=== PATIENT | female | born 1970 | race African-American/Black ===

== ENCOUNTER → 2020-10-07 | Outpatient (CLI) | payer BC ==
--- NOTE | 2020-10-10 16:31 | RAD ---
DATE: 10/07/2020 11:09 AM EXAM: MAMMO JOSS SCREENING BILATERAL HISTORY: Screening COMPARISON: 08/02/2017, 09/29/2018, 09/29/2019 Bilateral CC and MLO views of the breasts were performed. Bilateral breast tomosynthesis was performed in CC and MLO projections. This study was interpreted with the benefit of Computerized Aided Detection (CAD). FINDINGS: Breast Density: HETERO The breast parenchyma Is heterogeneously dense, which could reduce sensitivity of mammography. Breast parenchyma level C Negative left mammogram A 10 mm mass in the medial middle third right breast at the approximate 3:00 position 4 cm from the nipple needs additional imaging with targeted right breast ultrasound. IMPRESSION: Right breast mass, findings for which additional imaging is advised. BI-RADS CATEGORY: 0 INCOMPLETE: NEEDS ADDITIONAL IMAGING EVALUATION AND/OR PRIOR MAMMOGRAMS FOR COMPARISON. RECOMMENDED FOLLOW-UP: ADD ADDITIONAL IMAGING The patient will be contacted to return for additional imaging and a supplemental report will follow. PQRS compliance statement: Patient information was entered into a reminder system with a target due date for the next mammogram. Mammography is a sensitive method for finding small breast cancers, but it does not detect them all and is not a substitute for careful clinical examination. A negative mammogram does not negate a clinically suspicious finding and should not result in delay in biopsying a clinically suspicious abnormality. "Our facility is accredited by the [employer] Mammography [employer]."
== END ==
LOC: MAMMO 10:57
PROVIDERS: ATTEND Family Medicine
DX: Z12.31 Encounter for screening mammogram for malignant neoplasm of breast (principal); N63.10 Unspecified lump in the right breast, unspecified quadrant
CPT/HCPCS: 77063; 77067

== ENCOUNTER → 2020-10-13 | Outpatient (CLI) | payer BC ==
--- NOTE | 2020-10-13 13:47 | RAD ---
Examination: 1. Limited right breast ultrasound. INDICATION: Screening recall for medial right breast mass. COMPARISON: Bilateral screening mammogram of 10/07/2020, 09/29/2019 and 08/02/2017. FINDINGS: Targeted ultrasound of the medial right breast identifies an 8 mm mixed solid and cystic mass at the 3:00 position 4 cm from the nipple that correlates with the mammographic finding recalled from screen ing. It is new from 2017 and shows a central nonvascular solid component with thin internal septation s. This could represent a benign lesion such as an intraductal papilloma but tissue sampling is recom mended for definitive diagnosis. IMPRESSION: Low index of suspicion for malignancy but suspicious 8 mm mass in the medial right breast. Recommend ultrasound-guided core needle biopsy BI-RADS Category 4 Findings suspicious for malignancy Biopsy recommended Discussed with patient. Findings and recommendations telephoned to the patient's referring physician Dr. Carmen Cardenas's office where Lindsey Moore, nurse, took the report on her behalf at 1:42 PM on 09/30. Electronically signed by: Justin Cadet MD (10/13/2020 1:44 PM) [id number]
== END ==
LOC: US 11:54
PROVIDERS: ATTEND Family Medicine
DX: N63.12 Unspecified lump in the right breast, upper inner quadrant (principal)
CPT/HCPCS: 76641

== ENCOUNTER 2021-03-30 10:16 | Emergency (ER) | payer BC | END 2021-03-30 10:42 | disposition left against medical advice (07) | LOC: ER 10:16 | DX: S69.90XA Unspecified injury of unspecified wrist, hand and finger(s), initial encounter (principal); Z53.21 Procedure and treatment not carried out due to patient leaving prior to being seen by health care provider; X58.XXXA Exposure to other specified factors, initial encounter; Y93.89 Activity, other specified; Y92.89 Other specified places as the place of occurrence of the external cause; Y99.8 Other external cause status ==

== ENCOUNTER → 2021-12-07 | Outpatient (CLI) | payer BC ==
--- NOTE | 2021-12-07 12:41 | RAD ---
EXAMINATION: MG BILAT SCREEN+JOSS CLINICAL HISTORY: Routine screening TECHNIQUE: Digital craniocaudal and mediolateral oblique views of the bilateral breasts obtained with 3-D tomosynthesis. COMPARISON: 10/07/2020, 09/29/2019, 09/29/2018 BREAST COMPOSITION: The breasts are heterogeneously dense, which may obscure small masses. FINDINGS: Increased conspicuity of possible architectural distortion in the posterior left breast approximately 8.5 cm from the nipple on cc view, likely in the lower inner quadrant. No evidence of suspicious mas s calcifications bilaterally. Biopsy marker clip at 3:00 position in the right breast. IMPRESSION: Questionable architectural distortion posterior left breast as described, recommend further evaluatio n with spot compression and true lateral views of the left breast and possible targeted left breast u ltrasound if indicated. BI-RADS ASSESSMENT: Category 0: Incomplete - Need Additional Imaging Evaluation and/or Prior Mammograms for Comparison RECOMMENDATION: Left breast diagnostic mammogram and possible targeted left breast ultrasound if indicated. PQRS compliance statement - Patient information was entered into a reminder system with a target due date for the next mammogram. "Our facility is accredited by the [employer] Mammography [employer]." Electronically signed by: Spenser Mancuso DO (12/07/2021 12:39 PM) [id number]
== END ==
LOC: MAMMO 10:01
PROVIDERS: ATTEND Family Medicine
DX: Z12.31 Encounter for screening mammogram for malignant neoplasm of breast (principal)
CPT/HCPCS: 77063; 77067

== ENCOUNTER → 2022-01-01 | Outpatient (CLI) | payer BC ==
--- NOTE | 2022-01-01 15:03 | RAD ---
EXAMINATION: MG DIAGNOSTICUNILAT MAMMO CLINICAL HISTORY: Callback possible architectural distortion left breast TECHNIQUE: Digital craniocaudal spot compression view and true lateral view of the left breast obtain ed. COMPARISON: 12/07/2021, 10/07/2020 BREAST COMPOSITION: The breasts are heterogeneously dense, which may obscure small masses. FINDINGS: Area of possible architectural distortion is less conspicuous following spot compression and is not d efinitively seen on true lateral view, compatible with superimposed normal fibroglandular tissue. IMPRESSION: No mammographic evidence of malignancy. BI-RADS ASSESSMENT: Category 2: Benign RECOMMENDATION: Return for routine bilateral screening mammogram in one year. PQRS compliance statement - Patient information was entered into a reminder system with a target due date for the next mammogram. "Our facility is accredited by the [employer] Mammography [employer]." Electronically signed by: Spenser Mancuso DO (01/01/2022 3:01 PM) [id number]
== END ==
LOC: MAMMO 14:07
PROVIDERS: ATTEND Family Medicine
DX: R92.2 Inconclusive mammogram (principal)
CPT/HCPCS: 77065

== ENCOUNTER → 2022-01-24 | Outpatient (CLI) | payer OTHER ==
--- NOTE | 2022-01-24 16:23 | RAD ---
EXAM: Pelvic ultrasound HISTORY: Left lower quadrant and pelvic pain. COMPARISON: None. FINDINGS: Sonographic evaluation of the pelvis was performed transabdominally and transvaginally. The uterus is surgically absent. Neither ovary is visualized and may also be surgically absent. The v aginal cuff appears normal. No adnexal mass or other abnormality is identified. Limited images of the bladder are unremarkable. IMPRESSION: 1. Status post hysterectomy. Neither ovary is visualized and may also be surgically absent. No abnorm ality is identified sonographically. Electronically signed by: Linda Chatterjee MD (01/24/2022 4:21 PM) [id number]
== END ==
LOC: US 10:19
PROVIDERS: ATTEND Family Medicine
DX: R10.32 Left lower quadrant pain (principal); Z90.710 Acquired absence of both cervix and uterus
CPT/HCPCS: 76830; 76856